=== PATIENT | male | born 1975 | race Caucasian/White ===

== ENCOUNTER 2025-03-18 14:10 | Observation (INO) | payer BC, SELFPAY ==
[2025-03-18 14:16] VITALS: BMI 39.9
--- NOTE | 2025-03-18 16:25 | ECG_ITS ---
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 Measurements Intervals [place] Rate: 72 P: 61 IN: 194 QRS: 6 QRSD: 111 T: 21 QT: 381 QTc: 419 Interpretive Statements SINUS RHYTHM INTRAVENTRICULAR CONDUCTION DELAY [110+ ms QRS DURATION] No previous ECG available for comparison Electronically Signed On 03-19-2025 20:18:37 [employer] ARCHITECT by Jose Coppola M.D. [email or web address] [id number]
[2025-03-18 16:30] VITALS: BP 112/72; PULSE 74; RESP 19; TEMP 36.6; O2SAT 95
--- NOTE | 2025-03-18 16:48 | USCV_ITS ---
Farhat Carballo Age: 49 Gender: M : 1975 Exam Date: 03/18/2025 18:37 Ordering Phys: Tameka Calix HOME SERVICE TECHNICIAN Technologist: ZAID Exam Location: [facility] [place] Indication: CP protocol, unstable angina, morbid obesity BP: 112 / 72 HR: 74 Rhythm: Sinus Technical Quality: Adequate MEASUREMENTS (Male / Female) Normal Values 2D ECHO LV Diastolic Diameter PLAX 4.7 cm 4.2 - 5.9 / 3.9 - 5.3 cm IVS Systolic Thickness 1.9 cm LVPW Systolic Thickness 2.2 cm LVOT Diameter 2.5 cm LV Ejection Fraction 2D Teich 58.4 % LV Ejection Fraction MOD 4C 57.2 % LV Ejection Fraction MOD 2C 56.4 % LV Ejection Fraction 2C AL 55.0 % LA Diameter 3.2 cm Aorta at Sinotubular Diameter 2.9 cm IVC Diameter 1.4 cm M-MODE LA Ao Ratio MM 1.3 AV Cusp Separation MM 2.2 cm DOPPLER AV Peak Velocity 140.0 cm/s LVOT Peak Velocity 101.0 cm/s AV Area Cont Eq vti 3.7 cm squared AV Area Cont Eq pk 3.4 cm squared MV Peak Velocity 85.0 cm/s MV Area PHT 3.3 cm squared Mitral E to A Ratio 1.2 TV Peak E Velocity 63.0 cm/s PV Peak Velocity 96.0 cm/s FINDINGS Left Ventricle Normal left ventricular size, systolic function and ejection fraction of 57%. Normal left ventricular diastolic function. Normal left ventricular wall thickness. Right Ventricle Normal right ventricular size and systolic function. RVSP could not be calculated due to incomplete tricuspid regurgitation velocity profile. Right Atrium Normal right atrial size. Left Atrium Normal left atrial size. IA Septum Normal appearance of the interatrial septum. No [id number]-gc-[id number] shunt seen at the atrial level with agitated saline study. Mitral Valve Normal mitral valve structure. No mitral valve stenosis or regurgitation. Aortic Valve Normal aortic valve structure. No aortic valve stenosis or regurgitation. Tricuspid Valve Normal tricuspid valve structure. No tricuspid valve stenosis or regurgitation. Pulmonic Valve Normal pulmonic valve structure.Trace regurgitation. Pericardium No pericardial effusion. Aorta Normal diameter of the aortic root and ascending thoracic aorta. IVC Normal IVC diameter. CONCLUSIONS Normal left ventricular size, systolic function and wall thickness with ejection fraction of 57%. Normal right ventricular size and systolic function. No significant valvular abnormalities. No [id number] shunt seen at the atrial level with agitated saline study. Jose Coppola MD, FACC (Electronically Signed) Final Date: 18 March 2025 22:44 S
[2025-03-18 16:49] VITALS: PULSE 72; PULSE 73
[2025-03-18 17:23] VITALS: RESP 16; O2SAT 97
[2025-03-18] MEDS: morphine 4 mg/mL SDV 1 mL IVP (17:23)
[2025-03-18 17:25] VITALS: BP 112/72; PULSE 66
[2025-03-18] MEDS: nitroglycerin 1 gm/inch oint Pkt 1 INCH TOPICAL (17:25)
[2025-03-18 17:57] VITALS: PULSE 81; O2SAT 94
--- NOTE | 2025-03-18 18:15 | P.CONIM_ITS ---
<Statement entered by Jose Coppola MD - 03/18/25 19:57> Patient was evaluated and cared for in conjunction with an advanced practice practitioner. I personally examined the patient and reviewed the chart and all pertinent data including imaging, telemetry, and laboratory results. I discussed the patient in detail with the advanced practice practitioner. Please see their note for complete consult note, testing results and agreed upon plan of care for the patient. Echo ordered and being done currently at bedside. Providers/Reason For Consult Consulting Physician/Specialty*: Dr. Coppola, cardiology Reason for Consult*: Direct admit from [facility] for chest pain Attending Physician: Tameka Calix, ARABIC TRANSLATOR, INTERLOCKING AND SIGNAL MECHANIC History of Present Illness History of Present Illness Farhat Carballo is a 49 year old male with past medical history of asthma, obstructive sleep apnea on CPAP, hypertension, diet-controlled diabetes. He presented to the emergency room at [facility] for symptoms of pounding heart , chest pain. He notes a history of syncope for the last 2 months with no medical attention sought. Three weeks ago he came home from work, sat down on his chair and had a syncopal event. When he woke up he had slurred speech was unable to move from the chair, could not call for help, and remained that way for about 6 hours. He did not seek medical attention at that time, he thought maybe it was a hypoglycemic event. Four days ago he was at work when he developed sudden weakness and fell to the floor. Immediately prior to that he had noticed twinges in his chest felt like something moving around in his chest. He has had changes in vision which occur with these syncopal episodes, like tunnel vision as well as diaphoresis. In the most recent episode of weakness 4 days ago, according to bystander he did not lose consciousness. He denies any loss of bowel or bladder function. He has had exertional chest pain for the last year which he thought was asthma related but did not have any improvement with inhaler use. He has had hypertension for about 3 years, his PCP prescribed metoprolol tartrate 100 mg twice daily. Blood pressure has been ranging 130-165 systolic lately. He had surgery for a brain tumor a year and a half ago at [facility] in [place]. 4 days ago he began having left-sided chest pressure which feels like a elephant sitting on his chest , he has been waking up with the chest pain. At its worst it has been rated 9 out of 10, currently it is rated 6 out of 10. He has had some lower extremity edema for the last 2 to 3 years, by his report he was sent to a vein clinic and was told there was nothing they could do for him. He does not know if this is because the reflux was not significant enough. He also reports some pleuritic type chest pain in the left side since yesterday morning worse with inspiration. Troponin series has been ordered but no results are available yet. EKG reveals sinus rhythm, indeterminate axis, moderate IVCD (QRS duration 111 ms), no ischemic ST or T wave changes. No previous cardiac workup has been done, apparently had a stress test ordered at [facility]. Medications/Allergies Home Medications ?Medication ?Instructions ?Recorded ?Confirmed ?Last Taken ?Type cyclobenzaprine 10 mg tablet 10 mg PO PRN PRN Spasms 1 05/18/24 03/18/25 Unknown History Allergies Allergy/AdvReac Type Severity Reaction Status Date / Time aspirin Allergy ALGY-Anaphy Verified 03/18/25 14:21 laxis Penicillins Allergy Unresponsiv Verified 03/18/25 14:21 e topiramate Allergy ALGY-Anaphy Verified 03/18/25 14:21 laxis tuna oil Allergy ALGY-Anaphy Verified 03/18/25 14:21 laxis Current Medications Generic Name Dose Route Start Last Admin Trade Name Freq PRN Reason Stop Dose Admin Sodium Chloride 1,000 mls @ 75 mls/hr 03/18/25 16:30 03/18/25 17:26 Sodium Chloride 0.9% IV 75 mls/hr .[id number] JULIETH Administration Morphine Sulfate 4 mg 03/18/25 16:30 03/18/25 17:23 Morphine 4 Mg/Ml Sdv 1 Ml IVP 4 mg Q4H PRN Administration SEVERE PAIN Nitroglycerin 1 inch 03/18/25 17:00 03/18/25 17:25 Nitroglycerin 1 Gm/Inch Oint Pkt TOPICAL 1 inch Q6H JULIETH Administration PFSH Acute PFSH: Family History (Updated 03/18/25 @ 14:38 by Brigida Gallagher RN) Mother Congestive heart failure (CHF) Father Cancer Vitals/I&O/Wt Last Vital Signs Temp 97.8 F 03/18/25 16:30 Pulse 81 03/18/25 17:57 Resp 16 03/18/25 17:23 BP 112/72 03/18/25 17:25 Pulse Ox 94 03/18/25 17:57 O2 Del Method Room Air 03/18/25 17:57 03/18/25 03/18/25 03/18/25 06:59 14:59 22:59 Intake Total 120 / 120 Balance 120 / 120 Weight last 48 hrs Weight 336 lb 3.279 oz Physical Exam Const: COMMON NORMALS: no acute distress and patient oriented x3 GENERAL APPEARANCE: cooperative and comfortable ORIENTATION/CONSCIOUSNESS: Yes awake, Yes oriented to person, Yes oriented to place and Yes oriented to time Chest: COMMONS NORMALS: normal inspection of the chest and normal palpation of entire chest wall CHEST: Yes Symmetrical chest wall rise Resp: COMMON NORMALS: normal respiratory effort, No retractions, No use of accessory muscles and clear to auscultation bilaterally EFFORT & INSPECTION: Yes symmetric chest movement AUSCULTATION: clear to auscultation bilaterally Cardio: COMMON NORMALS: regular rate, regular rhythm, S1 normal heart sound present, S2 normal heart sound present, No gallops present (Cardio), No clicks present (Cardio), No murmurs present (Cardio) and No rub (Cardio) RATE: regular rate RHYTHM: regular rhythm HEART SOUNDS: S1 normal heart sound present and S2 normal heart sound present PERIPHERAL PULSES: radial pulses present Extremity: COMMON NORMALS: no pedal edema Neuro: COMMON NORMALS: patient oriented x3 and moves all extremities SENSORIUM/ORIENTATION: Yes oriented to person, Yes oriented to place and Yes oriented to time A&P Assessment and plan 1. Syncope and collapse: 2. Chest pain: 3. Hypertension: 4. JENN on CPAP: 5. Diabetes: Plan: Appears to have an unstable angina, as well as syncope of unknown etiology. Will observe troponin trend. He continues to have chest pressure at rest, currently 6 out of 10. Nitropaste applied to the chest, we will switch to nitroglycerin infusion. Will also order D-dimer to rule out PE, given the syncope and pleuritic type chest pain in addition to chest pressure. Possible coronary angiography tomorrow morning, depending on progress overnight. N.p.o. after midnight tonight. PDMP PDMP Reviewed: Not Reviewed Coding Level of Care Code Acute Code for Chg Fwd Diagnoses Syncope and collapse R55 Chest pain R07.9 Hypertension I10 JENN on CPAP G47.33 Diabetes E11.9
--- NOTE | 2025-03-18 18:30 | P.HP_ITS ---
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 Patient reports that for the last 2 to 3 months he has experienced intermittent severe chest pain 7/10 that radiates to his left arm. Also endorses fatigue and syncope. Pain is worse on exertion and in instances where he is agitated. His mother passed with cardiac history of CHF in 2006 and his father had an MA and bone/brain/colon cancer, passed in 2022. One of his 3 sisters also has heart history. Patient endorses syncope, markedly an episode 3 weeks ago where he was down for 6 hours and felt his heart squeezing/ stopping , and then another episode of this 2 days ago. He reports that this morning his symptoms in the 0300 hour where chest pain rated 9/10 and he experienced facial numbness. He made the decision to come to [facility] via walking and private vehicle. Of note, patient has an allergy to penicillin, aspirin, and ibuprofen that have caused anaphylaxis in the past. He also has a moderate allergy to Topamax. P jose g has a history of 50+ broken bones from BMX bike racing and cage fighting sports. At [facility], BP 144/88, HR 76, O2 98, RR 19, T 97.7. WBC 8.8, Hgb 15.5, PLT 226. EOS 3.1 H, neutrophils 5.1 H, eosinophils 0.3 H. Glucose 104, BUN 11, creatinine 0.9, IgE 47, GFR 90.4 none -Mauritanian, potassium 3.8, sodium 139, potassium 3.8, chloride 105, CO2 28, total bili 0.7, total protein 8.2, albumin 4.2, calcium 8.5, alk phos 73, AST 19, ALT V16, osmolality 268, bun/creat 12, anion gap 10, H/G ratio 1.1. Troponin negative. Magnesium 1.7. CXR portable; lungs showed no consolidation, pleural effusion or pneumothorax, the cardiomediastinal silhouette and primary vessels are within normal limits, mild eventration right Heema diaphragm, upper abdomen is unremarkable, no acute bony abnormality, impression: No acute cardiopulmonary disease. Will admit to Hospitalist Service for further evaluation and treatment. Review of Systems General: Reports: 10 or more systems reviewed and unremarkable except in HPI and below Card: Reports: chest pain, palpitations, irregular heart rhythm, syncope, pre- syncope, dyspnea on exertion and orthopnea Musc: Reports: back pain Skin/Breast: Reports: erythema Neuro: Reports: headache(s) Medications/Allergies Home Medications ?Medication ?Instructions ?Recorded ?Confirmed ?Last Taken ?Type cyclobenzaprine 10 mg tablet 10 mg PO PRN PRN Spasms 1 05/18/24 03/18/25 Unknown History Allergies Allergy/AdvReac Type Severity Reaction Status Date / Time aspirin Allergy ALGY-Anaphy Verified 03/18/25 14:21 laxis Penicillins Allergy Unresponsiv Verified 03/18/25 14:21 e topiramate Allergy ALGY-Anaphy Verified 03/18/25 14:21 laxis tuna oil Allergy ALGY-Anaphy Verified 03/18/25 14:21 laxis PFSH Acute PFSH: Family History (Reviewed 03/18/25 @ 18:57 by Tameka Calix, SOFTWARE PERFORMANCE ENGINEER, PHOTOGRAPHER HELPER) Mother Congestive heart failure (CHF) Father Cancer Vitals/I&O/Wt Last Vital Signs Temp 97.8 F 03/18/25 16:30 Pulse 81 03/18/25 17:57 Resp 16 03/18/25 17:23 BP 112/72 03/18/25 17:25 Pulse Ox 94 03/18/25 17:57 O2 Del Method Room Air 03/18/25 17:57 03/18/25 03/18/25 03/18/25 06:59 14:59 22:59 Intake Total 120 / 120 Balance 120 / 120 Weight last 48 hrs Weight 152.5 kg Physical Exam Const: COMMON NORMALS: patient oriented x3 and alert Eye: GENERAL EYE: appearance normal, both eyes and all related structures Neck/C-Spine: GENERAL: Yes normal visual inspection Resp: COMMON NORMALS: normal respiratory effort and No retractions Cardio: JUGULAR VENOUS DISTENTION: no JVD RATE: regular rate RHYTHM: regular rhythm Extremity: GENERAL: Yes normal exam except as noted Neuro: COMMON NORMALS: patient oriented x3 and moves all extremities Skin: NARRATIVE SKIN EXAM: Flushed face red A&P Assessment and plan 1. Chest pain: Patient reports chest pain X 2-3 months This is first assessment by medical collections representative inpatient/outpatient Chest pain rated 7/10 Troponin at OSH negative?initial Serial troponins ordered EKG -sinus rhythm, rate 70 Telemetry Cardiology consulted, recommendations appreciated Heparin drip started at OSH, stopped at this facility. Lovenox added here N.p.o. at midnight Echocardiogram complete pending 2. Syncope and collapse: Patient reports multiple episodes of syncope with chest pain episodes Significant event was 3 weeks ago where he was down for 6 hours, last event was 2 days ago Fall risk precautions PT/OT before discharge 3. Hypertension: BP 154/88, HR 76 BP monitoring 4. Diabetes: Hyperglycemia/hypoglycemia protocol?sliding scale A1c pending 5. JENN on CPAP: CPAP RT Supplemental O2 to keep saturations greater than 92% Pulse oximetry 6. Brain tumor: Patient reports having 3 brain tumors, 1 of which was excised from behind his right eye in 2022 He has the other 2 located approximately near the central nerve and near the sinuses Per patient, he has followed Dr. Shanique Diaz (who has since moved practice to [place]) and now Dr. Miguel for Neurology - I could not locate information to confirm second provider. 7. Family history of cardiac disorder: Father passed in 2022 with history of MA and bone/brain/colon cancer Mother passed in 2006 with history of CHF Patient has 3 sisters, 1 with heart history s/p PCI PDMP PDMP Reviewed: Not Reviewed Attestations Medical Necessity Statement*: Continue observation for chest pain rule out. Time Spent in Patient Care: Greater than 35 minutes Diagnoses Chest pain R07.9 Syncope and collapse R55 Hypertension I10 Diabetes E11.9 JENN on CPAP G47.33 Brain tumor D49.6 Family history of cardiac disorder Z82.49
[2025-03-18 20:00] VITALS: BP 112/72; PULSE 79; RESP 20; TEMP 36.8; O2SAT 93
[2025-03-18] MEDS: nitroglycerin drip 50 MG/250 ML PREMIX IV (20:14)
[2025-03-18 23:05] LABS: Troponin(5th) Baseline 9 ng/L (0-15)
[2025-03-19] VITALS (8 sets, daily range): BP systolic 92–146; BP diastolic 57–73; PULSE 58–81; RESP 15–17; TEMP 36.3–37; O2SAT 91–95
[2025-03-19 01:06] LABS: Troponin 5 2HR 8.05 ng/L (0-15); Troponin 5 2HR Delta -0.95 ABS# (0-10)
[2025-03-19 04:28] LABS: Hematocrit 42.2 % (37-53); Hemoglobin 13.60 g/dL (11.27-16.99); Mean Corpuscular HGB Conc 32.2 g/dL (30-55); Mean Corpuscular Hemoglobin 30.6 pg (27-33); Mean Corpuscular Volume 95.0 fl (82-101); Nucleated Red Blood Cells % 0 %; Platelet Count 198 10^3/cmm (157-399); Red Blood Count 4.44 10^6/uL (3.85-5.65); White Blood Count 9.05 10^3/uL (3.29-11.43)
[2025-03-19 04:45] LABS: Troponin 5 6HR 9.26 ng/L (0-15); Troponin 5 6HR Delta 0.26 ng/L (0-12)
[2025-03-19 04:46] LABS: Anion Gap 12.9 (5-19); Blood Urea Nitrogen 10 mg/dL (6-20); Calcium 8.3 mg/dL (8.5-10.5); Carbon Dioxide 23 mmol/L (22-29); Chloride 106 mmol/L (98-107); Glucose 110 mg/dL (65-115); Osmolality Calculated 286 mOsm/kg (285-295); Potassium 3.9 mmol/L (3.5-5.1); Sodium 138 mmol/L (136-145)
[2025-03-19 05:05] LABS: Estmated Average Glucose 114; Hemoglobin A1C 5.6 % (4.0-6.0)
[2025-03-19] MEDS: metoprolol succinate ER (24 HR) 25 mg Tablet PO (05:22)
--- NOTE | 2025-03-19 07:56 | CT_ITS ---
WS: [id number] CT CHEST ANGIOGRAPHY WITH REFORMATS HISTORY: elevated D dimer, chest pain TECHNIQUE: Contiguous axial images are obtained through the chest during arterial injection of intravenous contrast. Images are reconstructed to evaluate the pulmonary arteries. MIP imaging also reviewed. All CT scans at [facility] use at least one of these dose optimization techniques: automated exposure control; mA and/or kV adjustment per patient size (includes targeted exams where dose is matched to clinical indication); or iterative reconstruction. CONTRAST: Omnipaque 350; 100 mL IV. DLP: 563.16 mGy.cm COMPARISON: None available. Good opacification of the pulmonary arteries. Bilateral moderate burden of pulmonary emboli identified. Emboli begin in the distal RIGHT main pulmonary artery and extending into the upper and lower lobes and also the middle lobe. Greatest burden RIGHT lower lobe arteries. Emboli begin in the proximal lobar branches and extend into the upper and lower pulmonary arteries. Normal size aorta. Pulmonary artery size is also normal. No pulmonary infarct identified. No mass or nodule. No pericardial or pleural effusions. There is RIGHT heart strain. RIGHT heart is dilated. Small mediastinal and hilar lymph nodes. No adenopathy. Small hiatal hernia. Upper abdomen is negative. CT/CT angio chest PE protcl [id number] IMPRESSION: 1. Bilateral multi lobar pulmonary emboli. 2. RIGHT heart strain. 3. No mediastinal or hilar adenopathy. 4. No pneumonia or pulmonary infarct. Notified PRIYANK Carr at 03/19/2025 8:30 AM.
[2025-03-19] MEDS: iohexol 350 mg/mL 500 mL Btl (per mL) IV (08:19)
--- NOTE | 2025-03-19 10:00 | ECG_ITS ---
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 Measurements Intervals [place] Rate: 62 P: 61 TN: 200 QRS: 31 QRSD: 111 T: 19 QT: 389 QTc: 395 Interpretive Statements SINUS RHYTHM MODERATE INTRAVENTRICULAR CONDUCTION DELAY [110+ ms QRS DURATION] Compared to ECG 03/18/2025 16:27:27 Indeterminate axis no longer present Electronically Signed On 03-21-2025 19:54:20 [employer] by Rafael Galarza M.D. [id number]
--- NOTE | 2025-03-19 10:48 | P.PN_ITS ---
Subjective 2 Subjective: Patient awake and alert at time of interview. Maintains tolerable pain 5/10. He had D-dimer result at 2.61. Imaging revealed pulmonary emboli in all lobes. Patient suffered right heart strain. Cardiology consulted and patient will not go to heart cath - he will stay for another overnight and discharge on Eliquis. Patient educated. Medications: Reviewed: Yes Vitals/I&O/Wt Last Vital Signs Temp 97.8 F 03/19/25 07:18 Pulse 64 03/19/25 07:18 Resp 16 03/19/25 07:18 BP 125/65 03/19/25 07:18 Pulse Ox 94 03/19/25 07:18 O2 Del Method Room Air 03/19/25 07:18 03/18/25 03/19/25 03/19/25 22:59 06:59 14:59 Intake Total 360 / 360 52.30 / 412.30 1000 / 1000 Balance 360 / 360 52.30 / 412.30 1000 / 1000 Weight last 48 hrs Weight 153.8 kg Weight 152.5 kg Physical Exam 2 Const: COMMON NORMALS: patient oriented x3 and alert Eye: GENERAL EYE: appearance normal, both eyes and all related structures Neck/C-Spine: GENERAL: Yes normal visual inspection Resp: COMMON NORMALS: normal respiratory effort and No retractions Cardio: COMMON NORMALS: regular rate and regular rhythm JUGULAR VENOUS DISTENTION: no JVD RATE: regular rate RHYTHM: regular rhythm Extremity: GENERAL: Yes normal exam except as noted Neuro: COMMON NORMALS: patient oriented x3 and moves all extremities S ENSORIUM/ORIENTATION: Yes alert Skin: NARRATIVE SKIN EXAM: Flushed face red Data 03/19/25 04:20 03/19/25 04:20 A&P Assessment and plan 1. Chest pain: Patient reports chest pain X 2-3 months This is first assessment by outside medical sales representative inpatient/outpatient Chest pain rated 7/10 Troponin at OSH negative?initial Serial troponins ordered EKG -sinus rhythm, rate 70 Telemetry Cardiology consulted, recommendations appreciated Heparin drip started at OSH, stopped at this facility. Lovenox added here ECHO D-dimer result 2.61 > CTA > PE bilaterally > Will stay an additional midnight > possible DC 03/20. 2. Syncope and collapse: Patient reports multiple episodes of syncope with chest pain episodes Significant event was 3 weeks ago where he was down for 6 hours, last event was 2 days ago Fall risk precautions PT/OT before discharge 3. Hypertension: BP monitoring 4. Diabetes: Hyperglycemia/hypoglycemia protocol?sliding scale 5. JENN on CPAP: CPAP RT Supplemental O2 to keep saturations greater than 92% Pulse oximetry 6. Brain tumor: Patient reports having 3 brain tumors, 1 of which was excised from behind his right eye in 2022 He has the other 2 located approximately near the central nerve and near the sinuses Per patient, he has followed Dr. Shanique Diaz (who has since moved practice to [place]) and now Dr. Miguel for Neurology - I could not locate information to confirm second provider. 7. Family history of cardiac disorder: Father passed in 2022 with history of NH and bone/brain/colon cancer Mother passed in 2006 with history of CHF Patient has 3 sisters, 1 with heart history s/p PCI PDMP PDMP Reviewed: Not Reviewed Attestations 2 Medical Necessity Statement*: Continued hospitalization for one additional midnight for continued observation for PE and medication adjustments prior to discharge. Time Spent in Patient Care: Greater than 35 minutes Diagnoses Chest pain R07.9 Syncope and collapse R55 Hypertension I10 Diabetes E11.9 JENN on CPAP G47.33 Brain tumor D49.6 Family history of cardiac disorder Z82.49 Time Spent (min) 70
[2025-03-19] MEDS: ondansetron 2 mg/ML SDV 2 mL 4 MG IVP (12:25)
--- NOTE | 2025-03-19 12:38 | P.PN_ITS ---
<Statement entered by Jose Coppola MD - 03/19/25 17:48> Patient was evaluated and cared for in conjunction with an advanced practice practitioner. I personally saw the patient and reviewed the chart and all pertinent data. I discussed the patient in detail with the advanced practice practitioner. Please see their note for complete assessment and agreed upon plan of care for the patient. Subjective 2 Subjective: D-dimer checked last night was 2.61, CTA of the chest today revealing bilateral multilobar pulmonary emboli, right heart strain present. Emboli begin in the distal right main pulmonary artery extending into the upper, middle and lower lobes. Greatest embolic burden was in the right lower lobe arteries. Vitals/I&O/Wt Last Vital Signs Temp 98.4 F 03/19/25 11:33 Pulse 74 03/19/25 11:33 Resp 16 03/19/25 11:33 BP 109/58 03/19/25 11:33 Pulse Ox 93 03/19/25 11:33 O2 Del Method Room Air 03/19/25 11:33 03/18/25 03/19/25 03/19/25 22:59 06:59 14:59 Intake Total 360 / 412.30 52.30 / 412.30 1000 / 1000 Balance 360 / 412.30 52.30 / 412.30 1000 / 1000 Weight last 48 hrs Weight 339 lb 1.135 oz Weight 336 lb 3.279 oz Physical Exam 2 Const: COMMON NORMALS: no acute distress and patient oriented x3 GENERAL APPEARANCE: cooperative and comfortable ORIENTATION/CONSCIOUSNESS: Yes awake, Yes oriented to person, Yes oriented to place and Yes oriented to time Chest: COMMONS NORMALS: normal inspection of the chest and normal palpation of entire chest wall CHEST: Yes Symmetrical chest wall rise Resp: COMMON NORMALS: normal respiratory effort, No retractions, No use of accessory muscles and clear to auscultation bilaterally EFFORT & INSPECTION: Yes symmetric chest movement AUSCULTATION: clear to auscultation bilaterally Cardio: COMMON NORMALS: regular rate, regular rhythm, S1 normal heart sound present, S2 normal heart sound present, No gallops present (Cardio), No clicks present (Cardio), No murmurs present (Cardio) and No rub (Cardio) RATE: r egular rate RHYTHM: regular rhythm HEART SOUNDS: S1 normal heart sound present and S2 normal heart sound present PERIPHERAL PULSES: radial pulses present Extremity: COMMON NORMALS: no pedal edema Neuro: COMMON NORMALS: patient oriented x3 and moves all extremities S ENSORIUM/ORIENTATION: Yes oriented to person, Yes oriented to place and Yes oriented to time Data 03/19/25 04:20 03/19/25 04:20 A&P Assessment and plan 1. Bilateral pulmonary embolism: 2. Chest pain: 3. Hypertension: 4. Diabetes: 5. JENN on CPAP: 6. Syncope and collapse: Plan: He was found to have multiple bilateral pulmonary ballismus with right heart strain. Starting Eliquis 10 mg twice daily for the next 7 days then plan to reduce to 5 mg twice daily. Will also check venous duplex for DVT. No coronary angiogram planned at this time. PDMP PDMP Reviewed: Not Reviewed Attestations 2 Medical Necessity Statement*: Management of PE Coding Level of Care Code Acute Code for [facility] Fwd Diagnoses Bilateral pulmonary embolism I26.99 Chest pain R07.9 Hypertension I10 Diabetes E11.9 JENN on CPAP G47.33 Syncope and collapse R55
--- NOTE | 2025-03-19 12:41 | USCV_ITS ---
Farhat Carballo Age: 49 Gender: M : 1975 Exam Date: 03/19/2025 14:08 Ordering Phys: Kari Potter Technologist: ANA Exam Location: [facility] Indication: P/E, r/o dvt HISTORY: Pulmonary embolism-R/O DVT PROCEDURES: Venous duplex imaging was performed in bilateral lower extremities. The following venous structures were evaluated: common femoral vein, profunda vein, proximal portion of the greater saphenous vein, superficial femoral vein, and the popliteal vein. In addition, the posterior tibial and peroneal trunk were evaluated. FINDINGS: Normal 2-D Doppler and augmentation and compressibility throughout the lower extremity venous structures. Additional imaging through the proximal calf veins also reveals no thrombus. Limited evaluation of the greater saphenous vein is patent with no thrombus. CONCLUSIONS No DVT bilateral lower extremities. Dr. Kathrine Perdomo DO (Electronically Signed) Final Date: 19 March 2025 15:32 S
--- NOTE | 2025-03-19 18:10 | PC.NURSE ---
nitro drip stopped per Kari Potter.
[2025-03-20] VITALS (7 sets, daily range): BP systolic 101–123; BP diastolic 49–70; PULSE 56–74; RESP 12–20; TEMP 36.1–36.5; O2SAT 93–97; BMI 40.0
--- NOTE | 2025-03-20 08:57 | P.DS_ITS ---
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 Bilateral pulmonary embolism: Details from hospital stay: Chest pain rated 7/10 Troponins EKG -sinus rhythm, rate 70 Telemetry Cardiology consulted No PCI at this time CTA > Multiple PE Heparin > Lovenox > Eliquis Home o2 study before DC 2. Chest pain: Details from hospital stay: Patient reports chest pain X 2-3 months This is first assessment by medical detail representative inpatient/outpatient Heparin drip started at OSH, stopped at this facility. Lovenox added here ECHO D-dimer result 2.61 > CTA > PE bilaterally Eliquis at discharge PCP follow up 3. Hypertension: Details from hospital stay: Cardiology adjusting cardiac medication for home 4. Diabetes: Details from hospital stay: Continue home regimen 5. JENN on CPAP: Details from hospital stay: Continue home regimen 6. 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 Patient reports that for the last 2 to 3 months he has experienced intermittent severe chest pain 7/10 that radiates to his left arm. Also endorses fatigue and syncope. Pain is worse on exertion and in instances where he is agitated. His mother passed with cardiac history of CHF in 2006 and his father had an NH and bone/brain/colon cancer, passed in 2022. One of his 3 sisters also has heart history. Patient endorses syncope, markedly an episode 3 weeks ago where he was down for 6 hours and felt his heart squeezing/ stopping , and then another episode of this 2 days ago. He reports that this morning his symptoms in the 0300 hour where chest pain rated 9/10 and he experienced facial numbness. He made the decision to come to [facility] via walking and private vehicle. Of note, patient has an allergy to penicillin, aspirin, and ibuprofen that have caused anaphylaxis in the past. He also has a moderate allergy to Topamax. Patient has a history of 50+ broken bones from BMX bike racing and cage fighting sports. At [facility], BP 144/88, HR 76, O2 98, RR 19, T 97.7. WBC 8.8, Hgb 15.5, PLT 226. EOS 3.1 H, neutrophils 5.1 H, eosinophils 0.3 H. Glucose 104, BUN 11, creatinine 0.9, IgE 47, GFR 90.4 none -Turkmen, potassium 3.8, sodium 139, potassium 3.8, chloride 105, CO2 28, total bili 0.7, total protein 8.2, albumin 4.2, calcium 8.5, alk phos 73, AST 19, ALT V16, osmolality 268, bun/creat 12, anion gap 10, H/G ratio 1.1. Troponin negative. Magnesium 1.7. CXR portable; lungs showed no consolidation, pleural effusion or pneumothorax, the cardiomediastinal silhouette and primary vessels are within normal limits, mild eventration right Heema diaphragm, upper abdomen is unremarkable, no acute bony abnormality, impression: No acute cardiopulmonary disease. Admitted to Hospitalist Service for further evaluation and treatment. Hospital Course Hospital Course 03/19/25 Patient awake and alert at time of interview. Maintains tolerable pain 5/10. He had D-dimer result at 2.61. Imaging revealed pulmonary emboli in all lobes. Patient suffered right heart strain. Cardiology consulted and patient will not go to heart cath - he will stay for another overnight and discharge on Eliquis. Patient educated. 03/20/25 Patient AAOx4. Stable. Stayed an additional night for observation. Planning for home o2 assessment, and Eliquis at [place]. Cardiology cleared for discharge on their end to home with Eliquis BID and outpatient follow up. Physical Exam Const: COMMON NORMALS: no acute distress and patient oriented x3 GENERAL APPEARANCE: cooperative and comfortable ORIENTATION/CONSCIOUSNESS: Yes awake, Yes oriented to person, Yes oriented to place and Yes oriented to time Chest: COMMONS NORMALS: normal inspection of the chest and normal palpation of entire chest wall CHEST: Yes Symmetrical chest wall rise Resp: COMMON NORMALS: normal respiratory effort, No retractions, No use of accessory muscles and clear to auscultation bilaterally EFFORT & INSPECTION: Yes symmetric chest movement AUSCULTATION: clear to auscultation bilaterally Cardio: COMMON NORMALS: regular rate, regular rhythm, S1 normal heart sound present, S2 normal heart sound present, No gallops present (Cardio), No clicks present (Cardio), No murmurs present (Cardio) and No rub (Cardio) RATE: regular rate RHYTHM: regular rhythm HEART SOUNDS: S1 normal heart sound present and S2 normal heart sound present PERIPHERAL PULSES: radial pulses present Extremity: COMMON NORMALS: no pedal edema Neuro: COMMON NORMALS: patient oriented x3 and moves all extremities SENSORIUM/ORIENTATION: Yes oriented to person, Yes oriented to place and Yes oriented to time Discharge Data Studies Completed and Pending Completed Studies During Hospitalization Category Date Time Status CTA PE [CT angio chest PE protcl [id number]] Urgent Cat Scan 03/19/25 07:56 [place] [id number] Routine Ultrasound 03/19/25 12:41 Completed CV. echo w/w bubble [place] [id number] Routine Ultrasound 03/18/25 16:48 Completed Radiology Impressions Chest CTA 03/19/25 07:56 IMPRESSION: 1. Bilateral multi lobar pulmonary emboli. 2. RIGHT heart strain. 3. No mediastinal or hilar adenopathy. 4. No pneumonia or pulmonary infarct. Notified PRIYANK Carr at 03/19/2025 8:30 AM. Laboratory Results WBC 9.05 10^3/uL (3.29-11.43) 03/19/25 04:20 RBC 4.44 10^6/uL (3.85-5.65) 03/19/25 04:20 Hgb 13.60 g/dL (11.27-16.99) 03/19/25 04:20 Hct 42.2 % (37-53) 03/19/25 04:20 MCV 95.0 fl (82-101) 03/19/25 04:20 MCH 30.6 pg (27-33) 03/19/25 04:20 MCHC 32.2 g/dL (30-55) 03/19/25 04:20 RDW 13.0 % (12.1-15.1) 03/19/25 04:20 Plt Count 198 10^3/cmm (157-399) 03/19/25 04:20 MPV 10.1 fL (7.4-10.4) 03/19/25 04:20 Neut % (Auto) 58.4 % 03/19/25 04:20 Lymph % (Auto) 30.3 % 03/19/25 04:20 Victoria % (Auto) 7.0 % 03/19/25 04:20 Eos % (Auto) 3.1 % 03/19/25 04:20 Baso % (Auto) 0.8 % 03/19/25 04:20 Neut # (Auto) 5.29 10^3/uL (1.8-7.7) 03/19/25 04:20 Lymph # (Auto) 2.7 10^3/uL (0.8-4.8) 03/19/25 04:20 Victoria # (Auto) 0.6 10^3/uL (0.2-0.9) 03/19/25 04:20 Eos # (Auto) 0.3 10^3/uL (0.0-0.8) 03/19/25 04:20 Baso # (Auto) 0.1 10^3/uL (0.0-0.1) 03/19/25 04:20 Nucleated RBC % (auto) 0 % 03/19/25 04:20 Nucleated RBCs # 0.0 /100WBC 03/19/25 04:20 D-Dimer 2.61 ug/mLFEU (0-0.59) H 03/18/25 19:15 Sodium 138 mmol/L (136-145) 03/19/25 04:20 Potassium 3.9 mmol/L (3.5-5.1) 03/19/25 04:20 Chloride 106 mmol/L (98-107) 03/19/25 04:20 Carbon Dioxide 23 mmol/L (22-29) 03/19/25 04:20 Anion Gap 12.9 (5-19) 03/19/25 04:20 BUN 10 mg/dL (6-20) 03/19/25 04:20 Creatinine 0.9 mg/dL (0.7-1.2) 03/19/25 04:20 GFR Calculation 90.4 mL/min (90-130) 03/19/25 04:20 Glucose 110 mg/dL (65-115) 03/19/25 04:20 Estimat Average Glucose 114 03/19/25 04:20 Hemoglobin A1c 5.6 % (4.0-6.0) 03/19/25 04:20 Calculated Osmolality 286 mOsm/kg (285-295) 03/19/25 04:20 Calcium 8.3 mg/dL (8.5-10.5) L 03/19/25 04:20 Troponin T Baseline 9 ng/L (0-15) 03/18/25 22:27 Troponin T 120 Minute 8.05 ng/L (0-15) 03/19/25 00:27 Delta Troponin T -0.95 ABS# (0-10) L 03/19/25 00:27 Troponin T Hi Sens 6Hr 9.26 ng/L (0-15) 03/19/25 04:20 Troponin T Hi Sens 6Hr Delta 0.26 ng/L (0-12) 03/19/25 04:20 Vitals Last Vital Signs Temp 97.7 F 03/20/25 07:41 Pulse 69 03/20/25 07:41 Resp 16 03/20/25 07:41 BP 123/59 03/20/25 07:41 Pulse Ox 95 03/20/25 07:41 O2 Del Method Room Air 03/20/25 04:00 Discharge Plan Discharge Patient Disposition: Home Condition: Stable Prescriptions: New Eliquis DVT-PE Treat 30D Start 5 mg (74 tabs) tablets,dose pack See Rx Instructions .ROUTE .COMPLEX Qty: 74 0RF Rx Instructions: orally per package directions. 10 mg BID for 6 days and then 5 mg BID. Continued cyclobenzaprine 10 mg Tablet 10 mg PO PRN PRN (Reason: Spasms) Referrals: Kari Potter FNP [Nurse Practitioner, Cardiology] - 04/14/25 2:00 pm Gricel Dukes PA [Referring, Unknown] - 03/27/25 9:00 am Discharge Diet: Advance as tolerated Discharge Activity: Resume usual activity Patient Instructions: Diabetes and Diet, Apixaban (By mouth) (Eliquis), Chronic Hypertension (DC), CPAP (GEN), Chest Pain Stoplight, Opioid Safety, Patient Portal & Nata Instructions Activity Restrictions/Additional Instructions: If you notice unexplained blood in stool or any other unexplained bleeding please seek medical attention immediately. Discharge Attestations Time Spent in Discharge Care*: greater than 30 min Quality Metrics Clinical Quality Measures [ Venous Thromboembolism { Contraindication to Overlap Therapy: None; Overlap threrpy ordered; VTE Discharge Education: Education about anticoagulant therapy/Care Notes given, Education about treatment options/disease process;}] Coding Level of Care Code 14449 Total time (in minutes) for Discharge: 55 Diagnoses Bilateral pulmonary embolism I26.99 Chest pain R07.9 Hypertension I10 Diabetes E11.9 JENN on CPAP G47.33 Syncope and collapse R55
--- NOTE | 2025-03-20 09:20 | P.PN_ITS ---
<Statement entered by Jose Coppola MD - 03/20/25 17:39> Patient was evaluated and cared for in conjunction with an advanced practice practitioner. I personally saw the patient and reviewed the chart and all pertinent data. I discussed the patient in detail with the advanced practice practitioner. Please see their note for complete assessment and agreed upon plan of care for the patient. Subjective 2 Subjective: He has done well overnight, still has some sharp pleuritic chest pain. Has not required any oxygen. Will plan for discharge today. Venous duplex negative for DVT. Vitals/I&O/Wt Last Vital Signs Temp 97.7 F 03/20/25 07:41 Pulse 69 03/20/25 07:41 Resp 16 03/20/25 07:41 BP 123/59 03/20/25 07:41 Pulse Ox 95 03/20/25 07:41 O2 Del Method Room Air 03/20/25 04:00 03/19/25 03/20/25 03/20/25 22:59 06:59 14:59 Intake Total 1060 / 2060 480 / 480 Balance 1060 / 2060 480 / 480 Weight last 48 hrs Weight 337 lb 11.971 oz Weight 339 lb 1.135 oz Weight 336 lb 3.279 oz Physical Exam 2 Const: COMMON NORMALS: no acute distress and patient oriented x3 GENERAL APPEARANCE: cooperative and comfortable ORIENTATION/CONSCIOUSNESS: Yes awake, Yes oriented to person, Yes oriented to place and Yes oriented to time Chest: COMMONS NORMALS: normal inspection of the chest and normal palpation of entire chest wall CHEST: Yes Symmetrical chest wall rise Resp: COMMON NORMALS: normal respiratory effort, No retractions, No use of accessory muscles and clear to auscultation bilaterally EFFORT & INSPECTION: Yes symmetric chest movement AUSCULTATION: clear to auscultation bilaterally Cardio: COMMON NORMALS: regular rate, regular rhythm, S1 normal heart sound present, S2 normal heart sound present, No gallops present (Cardio), No clicks present (Cardio), No murmurs present (Cardio) and No rub (Cardio) RATE: r egular rate RHYTHM: regular rhythm HEART SOUNDS: S1 normal heart sound present and S2 normal heart sound present PERIPHERAL PULSES: radial pulses present Extremity: COMMON NORMALS: no pedal edema Neuro: COMMON NORMALS: patient oriented x3 and moves all extremities S ENSORIUM/ORIENTATION: Yes oriented to person, Yes oriented to place and Yes oriented to time Data 03/19/25 04:20 03/19/25 04:20 A&P Assessment and plan 1. Bilateral pulmonary embolism: 2. Syncope and collapse: 3. JENN on CPAP: 4. Diabetes: 5. Chest pain: Plan: He is feeling better today, continues to have sharp pleuritic chest pain. He has ambulated in the [place], did not qualify for oxygen. Will continue on Eliquis 10 mg twice daily for 7 days then reduce to 5 mg twice daily. He can discharge home today. Will discontinue nitrates, metoprolol and statin since he did not have an DC, he can follow-up with his PCP in regards to blood pressure management if that is required. PDMP PDMP Reviewed: Not Reviewed Attestations 2 Medical Necessity Statement*: DC home today Coding Level of Care Code Acute Code for g Fwd Diagnoses Bilateral pulmonary embolism I26.99 Syncope and collapse R55 JENN on CPAP G47.33 Diabetes E11.9 Chest pain R07.9
--- NOTE | 2025-03-20 10:24 | PC.CHAP ---
Pastoral Care Encounter/Spiritual Assessment Type of Contact [] Declined medical housekeeper visit [] Patient/Family/Request visit [] Outpatient visit [] Follow-up visit [] Physician referral [] Code/Alert [x] Routine visit [] Staff referral [] Actively dying [] Patient sleeping [] Family support [] [] Out of room [] Palliative care [] [] Receiving care in room [] Pre-surgical visit [] Trauma [] Long length of stay [] ICU visit [] Other: Relational/Emotional Strength [x] Patient feels connected with others/family/visitors/staff [] Distress [] Loneliness/isolation [] Abandonment Spirituality of Patient [x] Person of Maggie [] Attends Jew of their Maggie [x] Believes in Prayer [] Reads Bible or Rastafarian materials [] There are Spiritual issues to be addressed Hospitalist Physician Interventions [x] Prayer [x] Active listening [] Non-anxious presence [x] Spiritual/emotional support [] Crisis/trauma care [] Spiritual counseling [] Bereavement support [] Provided bereavement packet [] Provided Bible/devotional materials [] Provided toy/stuffed animal, coloring book to patient or family member [] Provided Communion [] Anointing/[place] [] Salvation [x] Completed spiritual assessment [] Other: Impact on Illness or Injury [] Angry [] Fearful [] Anxious [] Often cries [] Exhaustion [] Unable to work [] Unable to attend moravian [] Unable to walk/stand [] Unable to read [] Unable to drive [] Unable to eat/drink [] Unable to sleep [] Unable to be with family [] Patient intubated [] Other: Summary Time spent with patient 5 min
--- NOTE | 2025-03-20 11:03 | PC.NURSE ---
Patient discharge pending transport.
--- NOTE | 2025-03-20 15:40 | PC.NURSE ---
Patient transport did not show up. Patient went home via [facility]. Discharge and all belongings sent with patient. All lines discontinued.
== END 2025-03-20 15:43 | disposition home or self-care (01) ==
PROVIDERS: Nurse Practitioner Family; Admitting Provider Family Medicine; Visit Provider Clinical Nurse Specialist Acute Care
DX: I26.99 Other pulmonary embolism without acute cor pulmonale (principal); I10 Essential (primary) hypertension; E11.9 Type 2 diabetes mellitus without complications; G47.33 Obstructive sleep apnea (adult) (pediatric); Z99.89 Dependence on other enabling machines and devices; R55 Syncope and collapse; Z86.011 Personal history of benign neoplasm of the brain; J45.909 Unspecified asthma, uncomplicated; Z80.9 Family history of malignant neoplasm, unspecified; Z82.49 Family history of ischemic heart disease and other diseases of the circulatory system
CPT/HCPCS: 36415; 71275; 80048; 83036; 84484; 85025; 85378; 93005; 93970; 94760; 96372; C8929; G0378; G0379; J1650; J2270; J2405; J3490; J7030; J9999

== ENCOUNTER 2025-04-14 15:34 | Emergency (ER) | payer SELFPAY ==
--- NOTE | 2025-04-14 15:35 | XR_ITS ---
WS: [id number] XR chest 1V portable [id number] REASON FOR EXAM: cp/sob FINDINGS: The chest is unchanged compared to 03/18/2025. The heart and mediastinum are within normal limits. Calcified granulomatous disease bilaterally. No acute pulmonary parenchymal or pleural abnormality. No focal abnormality of the bony thorax. XR/XR chest 1V portable [id number] IMPRESSION: Stable chest without acute abnormality.
[2025-04-14 15:42] VITALS: BP 129/82; PULSE 89; TEMP 36.9; O2SAT 98
--- NOTE | 2025-04-14 15:47 | ECG_ITS ---
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 Measurements Intervals [place] Rate: 77 P: 60 SC: 199 QRS: 0 QRSD: 90 T: 30 QT: 359 QTc: 407 Interpretive Statements SINUS RHYTHM Compared to ECG 03/19/2025 10:17:50 No significant changes Electronically Signed On 04-16-2025 22:34:18 RELAY TECHNICIAN by Jose Coppola M.D. [email or web address]
--- NOTE | 2025-04-14 16:05 | W.ED.SOB ---
HPI - SOB/Dyspnea General: Chief Complaint: Shortness of Breath/Dyspnea Stated Complaint: cp, sob Time Seen by Provider: 04/14/25 15:54 History of Present Illness: HPI Narrative: 49-year-old male presents emergency room complaining of shortness of breath. Patient was recently hospitalized last month with shortness of breath found to have PEs and started on Eliquis he still is taking them. He is intermittently having chest pain. Reviewing his previous hospitalization there was no stress testing or angiography done. He denies any fever sweats chills nausea vomiting or diarrhea. Patient is on Eliquis. For recently diagnosed pulmonary embolism. Associated symptoms: Reports chest pain; Deny abdominal pain or fever(s) Related Data Home Medications ?Medication ?Instructions ?Recorded ?Confirmed cyclobenzaprine 10 mg tablet 10 mg PO PRN PRN Spasms 03/18/25 04/14/25 Previous Rx's ?Medication ?Instructions ?Recorded apixaban 5 mg (74 tabs) tablets in See Rx Instructions PO .COMPLEX 03/20/25 a dose pack (Eliquis DVT-PE Treat #74 ea 30D Start) Allergies Allergy/AdvReac Type Severity Reaction Status Date / Time aspirin Allergy ALGY-Anaphy Verified 04/14/25 15:52 laxis Penicillins Allergy Unresponsiv Verified 04/14/25 15:52 e topiramate Allergy ALGY-Anaphy Verified 04/14/25 15:52 laxis tuna oil Allergy ALGY-Anaphy Verified 04/14/25 15:52 laxis Review of Systems Const: Denies: fever(s) or chills Card: Reports: chest pain Resp: Reports: dyspnea GI: Denies: abdominal pain : Denies: dysuria, urinary frequency or urinary urgency Musc: Denies: neck pain or back pain Skin/Breast: Denies: rash PFSH ED PFSH: Family History Mother Congestive heart failure (CHF) Father Cancer Social History Smoking and tobacco/nicotine status: former use of tobacco/nicotine (quit ten years ago) Physical Exam Const: COMMON NORMALS: no acute distress GENERAL APPEARANCE: cooperative and comfortable ORIENTATION/CONSCIOUSNESS: Yes awake, Yes oriented to person, Yes oriented to place and Yes oriented to time HENMT: COMMON NORMALS: normocephalic, atraumatic and hearing grossly normal bilaterally HEAD & SCALP: normocephalic and atraumatic Resp: COMMON NORMALS: normal respiratory effort, No retractions, No use of accessory muscles and clear to auscultation bilaterally AUSCULTATION: clear to auscultation bilaterally Cardio: COMMON NORMALS: regular rate, regular rhythm and No murmurs present (Cardio) RATE: regular rate RHYTHM: regular rhythm GI: COMMON NORMALS: Soft to palpation and No hepatosplenomegaly present AUSCULTATION: Yes normoactive bowel sounds PALPATION: Yes Soft to palpation, No Tenderness to palpation present (GI), No Guarding due to palpation present (GI) and Yes No hepatosplenomegaly present Extremity: COMMON NORMALS: normal to inspection, capillary refill normal, no clubbing, cyanosis or edema, no calf tenderness and no pedal edema Neuro: SENSORIUM/ORIENTATION: Yes oriented to person, Yes oriented to place and Yes oriented to time Skin: COMMON NORMALS: no rashes or lesions noted GENERAL SKIN EXAM: no rashes or lesions noted Course Vital Signs: Vital signs: Vital Signs Temperature 98.5 F 04/14/25 15:42 Pulse Rate 74 04/14/25 20:39 Blood Pressure 130/67 04/14/25 20:39 Pulse Oximetry 95 04/14/25 20:39 Oxygen Delivery Me thod Room Air 04/14/25 19:38 MDM - SOB/Dyspnea Medical Decision Making Medical decision making Social determinants: None I reviewed the patient's medical record. I reviewed the patient's current home meds. Alternate historians: None Differential diagnosis: Acute coronary syndrome, PE, pneumonia Lab Review: Labs reviewed no leukocytosis. Troponins not significantly elevated BNP normal Imaging: Chest x-ray unremarkable no infiltrates or effusions no pneumothorax no widening of mediastinum Assessment of risk Level of risk: Moderate Hospitalization considerations: No acute hospitalization indicated at this time. Reexamination: Unchanged Assessment and plan: Patient resting comfortably not having any shortness of breath at this time. His cardiac enzymes negative EKG does not show any changes. His troponin is not significantly elevated and he has normal BNP his oxygen saturations remain normal and has not had any tachycardia. Continue Eliquis patient has known PE no evidence of treatment failure at this time. Lab Data 04/14/25 16:02 04/14/25 16:02 Labs/Radiology: Radiology Impressions Chest X-Ray 04/14/25 15:35 IMPRESSION: Stable chest without acute abnormality. Laboratory Results WBC 9.66 10^3/uL (3.29-11.43) 04/14/25 16:02 RBC 4.68 10^6/uL (3.85-5.65) 04/14/25 16:02 Hgb 14.30 g/dL (11.27-16.99) 04/14/25 16:02 Hct 43.6 % (37-53) 04/14/25 16:02 MCV 93.2 fl (82-101) 04/14/25 16:02 MCH 30.6 pg (27-33) 04/14/25 16:02 MCHC 32.8 g/dL (30-55) 04/14/25 16:02 RDW 12.7 % (12.1-15.1) 04/14/25 16:02 Plt Count 236 10^3/cmm (157-399) 04/14/25 16:02 MPV 10.9 fL (7.4-10.4) H 04/14/25 16:02 Neut % (Auto) 59.1 % 04/14/25 16:02 Lymph % (Auto) 28.5 % 04/14/25 16:02 [place] % (Auto) 7.9 % 04/14/25 16:02 Eos % (Auto) 3.5 % 04/14/25 16:02 Baso % (Auto) 0.6 % 04/14/25 16:02 Neut # (Auto) 5.71 10^3/uL (1.8-7.7) 04/14/25 16:02 Lymph # (Auto) 2.8 10^3/uL (0.8-4.8) 04/14/25 16:02 [place] # (Auto) 0.8 10^3/uL (0.2-0.9) 04/14/25 16:02 Eos # (Auto) 0.3 10^3/uL (0.0-0.8) 04/14/25 16:02 Baso # (Auto) 0.1 10^3/uL (0.0-0.1) 04/14/25 16:02 Nucleated RBC % (auto) 0 % 04/14/25 16:02 Nucleated RBCs # 0.0 /100WBC 04/14/25 16:02 Sodium 141 mmol/L (136-145) 04/14/25 16:02 Potassium 4.2 mmol/L (3.5-5.1) 04/14/25 16:02 Chloride 105 mmol/L (98-107) 04/14/25 16:02 Carbon Dioxide 24 mmol/L (22-29) 04/14/25 16:02 Anion Gap 16.2 (5-19) 04/14/25 16:02 BUN 7 mg/dL (6-20) 04/14/25 16:02 Creatinine 1.0 mg/dL (0.7-1.2) 04/14/25 16:02 GFR Calculation 80.1 mL/min (90-130) L 04/14/25 16:02 Glucose 81 mg/dL (65-115) 04/14/25 16:02 Calculated Osmolality 289 mOsm/kg (285-295) 04/14/25 16:02 Calcium 8.7 mg/dL (8.5-10.5) 04/14/25 16:02 Total Bilirubin 0.5 mg/dL (0.15-1.2) 04/14/25 16:02 AST 15 U/L (0-40) 04/14/25 16:02 ALT 17 U/L (0-41) 04/14/25 16:02 Alkaline Phosphatase 95 U/L (40-130) 04/14/25 16:02 Troponin T Baseline 10 ng/L (0-15) 04/14/25 16:02 Troponin T 120 Minute 9.51 ng/L (0-15) 04/14/25 17:57 Delta Troponin T -0.49 ABS# (0-10) L 04/14/25 17:57 NT-Pro-B Natriuret Pep 76 pg/mL (0-125) 04/14/25 16:02 Total Protein 6.9 g/dL (6.6-8.7) 04/14/25 16:02 Albumin 3.7 g/dL (3.5-5.2) 04/14/25 16:02 Globulin 3.2 g/dL (1.3-4.6) 04/14/25 16:02 All radiology interpretation(s) finalized by discharge EKG Data EKG 1: I personally reviewed and interpreted this EKG as follows: Interpretation: EKG 04/14/2025 1547 sinus rhythm no acute ST changes noted ventricular rate of 77. NM interval 199 QTc [address] changes noted EKG 2: I personally reviewed and interpreted this EKG as follows: Interpretation: EKG 04/14/2025 1737 sinus rhythm rate of 70 NM interval 209 QTc [address] elevation no significant change from EKG done earlier same day Discharge Plan Discharge Patient Disposition: Home Clinical Impression: Bilateral pulmonary embolism Condition: Stable Prescriptions: No Action cyclobenzaprine 10 mg Tablet 10 mg PO PRN PRN (Reason: Spasms) Eliquis DVT-PE Treat 30D Start 5 mg (74 tabs) tablets,dose pack See Rx Instructions .ROUTE .COMPLEX Qty: 74 0RF Rx Instructions: orally per package directions. 10 mg BID for 6 days and then 5 mg BID. Discharge Orders: Discharge ED (Routine); Ordered 04/14/25 Ordered By: Hugo Viveros Referrals: Gricel Dukes PA-C [Primary Care Provider, Emergency Medicine] Discharge Diet: Usual diet Discharge Activity: Resume usual activity Patient Instructions: Opioid Safety, Pain Management, Patient Portal & Nata Instructions Activity Restrictions/Additional Instructions: Thank you for choosing [facility] for your healthcare needs today. It is very important that you follow up as instructed or that you return to the Emergency Department should you have concerns or if your condition changes or worsens in any way. Emergency department visits are focused on emergent conditions, in some cases you may require further evaluation on an outpatient basis. You are seen emergency room with complaints of shortness of breath. You had a known previously diagnosed pulmonary embolism. There is no sign of elevation of your troponin or BNP. Your oxygen sats remain normal and did not have any significant tachycardia while you are in the emergency room. Will discharge you home and have [facility] with your primary physician. You may require further cardiac evaluation including possible stress testing. (Please note that included in your discharge packet is information concerning opioid safety and pain management. 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
[2025-04-14 16:43] LABS: Hematocrit 43.6 % (37-53); Hemoglobin 14.30 g/dL (11.27-16.99); Mean Corpuscular HGB Conc 32.8 g/dL (30-55); Mean Corpuscular Hemoglobin 30.6 pg (27-33); Mean Corpuscular Volume 93.2 fl (82-101); Nucleated Red Blood Cells % 0 %; Platelet Count 236 10^3/cmm (157-399); Red Blood Count 4.68 10^6/uL (3.85-5.65); White Blood Count 9.66 10^3/uL (3.29-11.43)
[2025-04-14 17:05] LABS: Troponin(5th) Baseline 10 ng/L (0-15)
--- NOTE | 2025-04-14 17:37 | ECG_ITS ---
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 [email or web address]
[2025-04-14 17:41] LABS: Alanine Aminotransferase 17 U/L (0-41); Albumin Level 3.7 g/dL (3.5-5.2); Alkaline Phosphatase 95 U/L (40-130); Anion Gap 16.2 (5-19); Aspartate Amino Transferase 15 U/L (0-40); Blood Urea Nitrogen 7 mg/dL (6-20); Calcium 8.7 mg/dL (8.5-10.5); Carbon Dioxide 24 mmol/L (22-29); Chloride 105 mmol/L (98-107); Globulin 3.2 g/dL (1.3-4.6); Glucose 81 mg/dL (65-115); NT Pro B Type Natriuretic Pept 76 pg/mL (0-125); Osmolality Calculated 289 mOsm/kg (285-295); Potassium 4.2 mmol/L (3.5-5.1); Sodium 141 mmol/L (136-145); Total Protein 6.9 g/dL (6.6-8.7)
[2025-04-14 18:47] VITALS: BP 129/93; PULSE 71; O2SAT 97
[2025-04-14 19:38] VITALS: BP 143/82; PULSE 70; O2SAT 100
[2025-04-14 20:39] VITALS: BP 130/67; PULSE 74; O2SAT 95
== END 2025-04-14 20:42 | disposition home or self-care (01) ==
PROVIDERS: Physician Assistant; Emergency Provider Family Medicine; PCP Physician Assistant
DX: I26.99 Other pulmonary embolism without acute cor pulmonale (principal); Z79.01 Long term (current) use of anticoagulants; Z87.891 Personal history of nicotine dependence
CPT/HCPCS: 36415; 71045; 80053; 83880; 84484; 85025; 93005; 99285

== ENCOUNTER 2025-04-30 09:06 | Outpatient (CLI) | payer SELFPAY ==
--- NOTE | 2025-04-30 09:00 | CT_ITS ---
WS: [id number] CT CHEST ANGIOGRAPHY WITH REFORMATS HISTORY: hx of PE, syncope, shortness of breath, chest pain TECHNIQUE: Contiguous axial images are obtained through the chest during arterial injection of intravenous contrast. Images are reconstructed to evaluate the pulmonary arteries. MIP imaging also reviewed. All CT scans at [facility] use at least one of these dose optimization techniques: automated exposure control; mA and/or kV adjustment per patient size (includes targeted exams where dose is matched to clinical indication); or iterative reconstruction. CONTRAST: Omnipaque 350; 100 mL IV. DLP: 527.01 mGy.cm COMPARISON: 03/19/2025 Adequate opacification of the pulmonary arteries. No residual pulmonary emboli are identified. Arteries are well visualized through the segmental branches. Less RIGHT heart strain than on the prior study. There is mild RIGHT heart enlargement. Slightly less flattening of the intraventricular septum. Normal size aorta. No pericardial or pleural effusions. No adenopathy. Breathing motion artifact resulting in a hazy appearance of the lungs. No acute findings. No areas of dense consolidation. Small hiatal hernia. Visualized adrenal glands and upper abdomen are negative. Thoracic spondylosis. CT/CT angio chest PE protcl [id number] IMPRESSION: 1. No residual pulmonary emboli identified. 2. No pneumonia or consolidations. Lung evaluation is limited by breathing mot ion artifact. 3. Improved RIGHT heart strain.
[2025-04-30] MEDS: iohexol 350 mg/mL 500 mL Btl (per mL) IV (09:31)
== END 2025-04-30 09:07 | disposition home or self-care (01) ==
LOC: RAD 09:08
PROVIDERS: PCP Physician Assistant; Visit Provider Nurse Practitioner Family
DX: Z86.711 Personal history of pulmonary embolism (principal); R55 Syncope and collapse; R06.02 Shortness of breath; R07.9 Chest pain, unspecified; I51.7 Cardiomegaly; M47.814 Spondylosis without myelopathy or radiculopathy, thoracic region; J98.4 Other disorders of lung
CPT/HCPCS: 71275